=== PATIENT | male | born 1945 | race African-American/Black ===

== ENCOUNTER 2019-07-01 06:13 | Emergency (ER) | payer OTHER ==
[~2019-07-01] VITALS: Ht 180.3 cm; Wt 81.8 kg
[~2019-07-01 06:13] MED LIST: AMLO5TAB4 PO; DUTA.5 PO; LORA-999 PO; RISP.5 PO
[2019-07-01 06:53] LABS: GLUCOSE,POINT OF CARE 99 MG/DL (70-110)
[2019-07-01 08:19] VITALS: BP 142/89
== END 2019-07-01 08:47 | disposition home or self-care (01) ==
LOC: EMS 06:13
DX: M25.551 Pain in right hip (principal); G89.29 Other chronic pain; F03.90 Unspecified dementia, unspecified severity, without behavioral disturbance, psychotic disturbance, mood disturbance, and anxiety; F32.9 Major depressive disorder, single episode, unspecified; E11.9 Type 2 diabetes mellitus without complications; I10 Essential (primary) hypertension; F20.9 Schizophrenia, unspecified; F17.210 Nicotine dependence, cigarettes, uncomplicated; Z88.5 Allergy status to narcotic agent
CPT/HCPCS: 72170